=== PATIENT | male | born 1955 | race Caucasian/White ===

== ENCOUNTER 2025-02-12 11:32 | Emergency (ER) | payer OTHER, MEDICARE ==
[2025-02-12 12:01] VITALS: BP 145/76; PULSE 73; RESP 16; TEMP 98.4; BMI 26.1
[2025-02-12] MEDS ORDERED: LIDOCAINE 5% TOPICAL PATCH ONE (12:11)
[2025-02-12] MEDS ORDERED: KETOROLAC TROMETHAMINE 30 MG/1 ML VIAL ONE (12:11)
[2025-02-12] MEDS ORDERED: METHOCARBAMOL 500 MG TABLET ONE (12:11)
[2025-02-12] MEDS: LIDOCAINE 5% TOPICAL PATCH TP ONE (12:18)
[2025-02-12] MEDS: KETOROLAC TROMETHAMINE 30 MG/1 ML VIAL IM ONE (12:18)
[2025-02-12] MEDS: METHOCARBAMOL 500 MG TABLET PO ONE (12:18)
[2025-02-12] MEDS ORDERED: LIDOCAINE PATCH REMOVAL MC ONE (22:00)
== END 2025-02-12 13:34 | disposition home or self-care (01) ==
LOC: FER 11:32
PROC: 3E0233Z Introduction of Anti-inflammatory into Muscle, Percutaneous Approach (ICD-10-PCS; principal; 2025-02-12)
DX: M54.50 Low back pain, unspecified (principal); X50.1XXA Overexertion from prolonged static or awkward postures, initial encounter
CPT/HCPCS: 99284-25